=== PATIENT | male | born 2005 | race Caucasian/White ===

== ENCOUNTER 2024-03-17 20:50 | Emergency (ER) | payer SELFPAY ==
[~2024-03-17] VITALS: Ht 165.1 cm; Wt 68.0 kg
[2024-03-17 21:18] VITALS: BP 121/69; PULSE 85; RESP 16; TEMP 98; O2SAT 97
== END 2024-03-17 23:10 | disposition left against medical advice (07) ==
LOC: ER 20:50
DX: R68.89 Other general symptoms and signs (principal); Z53.21 Procedure and treatment not carried out due to patient leaving prior to being seen by health care provider